=== PATIENT | female | born 1965 | race Two or more races ===

== ENCOUNTER 2018-06-06 19:53 | Emergency (ER) | payer OTHER ==
[~2018-06-06] VITALS: Ht 170.2 cm; Wt 115.7 kg
--- NOTE | 2018-06-06 20:10 | NUR ---
PT BIBRA TO ER BED 01. PER REPORT, WAS DRIVING IN THE FREEWAY WHEN SHE STARTED HAVING BLURRING OF VISION. PT ALSO ENDORSES R SIDED BODY ACHES ON AND OFF. NO FACIAL DROOPING NOTED. NO SLURRING OF SPEECH. PT IS AAOX3. AWAITING MD KENNEDY.
--- NOTE | 2018-06-06 21:28 | NUR ---
ANILA CODY AT BEDSIDE FOR EVAL.
[2018-06-06 21:41] LABS: BASOPHILS # (AUTO) 0.1 /CMM (0.0-0.2); BASOPHILS % (AUTO) 0.6 % (0.0-2.0); EOSINOPHILS % (AUTO) 3.9 % (0.0-6.0); HEMATOCRIT 44 % (33-45); HEMOGLOBIN 15.3 g/dL (11.5-14.8); LYMPHOCYTES # (AUTO) 2.5 /CMM (0.8-4.8); LYMPHOCYTES % (AUTO) 23.2 % (20.0-44.0); MEAN CORPUSCULAR HEMOGLOBIN 29 PG (26.0-33.0); MEAN CORPUSCULAR HGB CONC 35 g/dl (31.0-36.0); MEAN CORPUSCULAR VOLUME 81 fL (82-100); MONOCYTES # (AUTO) 0.5 /CMM (0.1-1.30); MONOCYTES % (AUTO) 4.8 % (2.0-12.0); NEUTROPHILS # (AUTO) 7.2 /CMM (1.8-8.9); NEUTROPHILS % (AUTO) 67.5 % (43.0-81.0); PLATELET COUNT (AUTO) 166 /CMM (150-450); RDW COEFFICIENT OF VARIATION 12.5 (11.5-15.0); RED BLOOD CELL COUNT(AUTO) 5.36 MIL/uL (4.0-5.2); WHITE BLOOD COUNT (AUTO) 10.7 K/uL (4.3-11.0)
[2018-06-06 21:49] LABS: CREATININE 0.8 mg/dL (0.6-1.3); POTASSIUM 3.8 mmol/L (3.5-5.1)
--- NOTE | 2018-06-06 23:16 | NUR ---
Patient discharged to home in stable condition. Written and verbal after care instructions given. Patient verbalizes understanding of instruction.
[2018-06-06 23:17] VITALS: BP 138/72
== END 2018-06-06 23:20 | disposition home or self-care (01) ==
LOC: ER 19:55
DX: H53.8 Other visual disturbances (principal); R52 Pain, unspecified; R42 Dizziness and giddiness
CPT/HCPCS: 36415; 70450; 71045; 80048; 85025; 93005; 99285; A4606; Z7610